=== PATIENT | male | born 1995 | race Caucasian/White ===

== ENCOUNTER 2017-08-28 17:02 | Emergency (ER) | payer BC, SELFPAY ==
[2017-08-28] MEDS ORDERED: Ibuprofen 200 MG TAB ONE (17:31)
--- NOTE | 2017-08-29 07:46 | RAD ---
3 VIEWS RIGHT FOOT: Date: 08/28/17 COMPARISON: None. HISTORY: Right foot pain after injury. FINDINGS: Three views of the right foot show a spiral fracture of the 5th metacarpal with overlying soft tissu e swelling. This fracture is extraarticular. No significant degenerative changes are seen. IMPRESSION: Right 5th metacarpal fracture. POS: [facility]
== END 2017-08-28 18:33 | disposition home or self-care (01) ==
LOC: NAV ERS 17:02
DX: S92.354A Nondisplaced fracture of fifth metatarsal bone, right foot, initial encounter for closed fracture (principal); F90.9 Attention-deficit hyperactivity disorder, unspecified type; X50.1XXA Overexertion from prolonged static or awkward postures, initial encounter

== ENCOUNTER 2017-11-09 17:33 | Emergency (ER) | payer BC ==
[2017-11-09] MEDS ORDERED: diphenhydrAMINE 50 MG/ML VIAL ONE (18:08)
[2017-11-09] MEDS ORDERED: Sodium Chloride 0.9% 1,000 ML ONE (18:08)
[2017-11-09] MEDS ORDERED: Ketorolac Tromethamine 30 MG/ML VIAL ONE (18:09)
--- NOTE | 2017-11-09 18:50 | CT ---
CT HEAD WITHOUT CONTRAST: 11/09/16 Multiple axial tomograms obtained through the head without contrast. HISTORY: Headache. Ventricles have normal size and position. No evidence of intracranial mass or hemorrhage. Sinuses and mastoids are aerated. IMPRESSION: No acute abnormality. POS: [facility]
== END 2017-11-09 19:43 | disposition home or self-care (01) ==
LOC: NAV ERS 17:33
DX: R51 Headache (principal); F90.9 Attention-deficit hyperactivity disorder, unspecified type
CPT/HCPCS: 70450; 96361; 96374; 96375; J1200; J1885; J7050

== ENCOUNTER 2017-12-14 16:10 | Emergency (ER) | payer BC ==
[2017-12-14] MEDS ORDERED: Lorazepam 1 MG TAB ONE (16:53)
== END 2017-12-14 17:30 | disposition home or self-care (01) ==
LOC: NAV ERS 16:10
DX: F41.9 Anxiety disorder, unspecified (principal); R03.0 Elevated blood-pressure reading, without diagnosis of hypertension; G43.909 Migraine, unspecified, not intractable, without status migrainosus; F32.9 Major depressive disorder, single episode, unspecified; F90.9 Attention-deficit hyperactivity disorder, unspecified type; Z87.891 Personal history of nicotine dependence
CPT/HCPCS: 99284

== ENCOUNTER 2018-01-12 21:48 | Emergency (ER) | payer BC ==
[2018-01-12] MEDS ORDERED: Lorazepam 1 MG TAB ONE (22:24)
== END 2018-01-12 22:42 | disposition home or self-care (01) ==
LOC: NAV ERS 21:48
DX: F41.9 Anxiety disorder, unspecified (principal); G43.909 Migraine, unspecified, not intractable, without status migrainosus; Z87.891 Personal history of nicotine dependence
CPT/HCPCS: 99283

== ENCOUNTER 2018-03-23 15:46 | Emergency (ER) | payer BC, OTHER ==
[2018-03-23] MEDS ORDERED: HYDROcodone/Acetaminophen 5/325 mg Tablet ONE (16:06)
--- NOTE | 2018-03-23 16:20 | RAD ---
FINGERS LEFT HAND: 03/23/18 Left third finger evaluated. Three views obtained. HISTORY: Injury to left third finger with pain. No evidence of fracture or dislocation. IMPRESSION: No acute osseous abnormality. POS: [facility]
[2018-03-23] MEDS ORDERED: Bacitracin Zinc 1 Packet ONE (16:57)
== END 2018-03-23 17:02 | disposition home or self-care (01) ==
LOC: NAV ERS 15:46
DX: S60.032A Contusion of left middle finger without damage to nail, initial encounter (principal); G43.909 Migraine, unspecified, not intractable, without status migrainosus; F41.9 Anxiety disorder, unspecified; F90.9 Attention-deficit hyperactivity disorder, unspecified type; K58.9 Irritable bowel syndrome, unspecified; F32.9 Major depressive disorder, single episode, unspecified; Z87.891 Personal history of nicotine dependence; Z79.899 Other long term (current) drug therapy; W23.0XXA Caught, crushed, jammed, or pinched between moving objects, initial encounter

== ENCOUNTER 2018-03-24 14:52 | Emergency (ER) | payer OTHER ==
[2018-03-24] MEDS ORDERED: Bacitracin Zinc 1 Packet ONE (15:22)
== END 2018-03-24 15:45 | disposition home or self-care (01) ==
LOC: NAV ERS 14:52
DX: S60.132A Contusion of left middle finger with damage to nail, initial encounter (principal); G43.909 Migraine, unspecified, not intractable, without status migrainosus; F41.9 Anxiety disorder, unspecified; F32.9 Major depressive disorder, single episode, unspecified; F90.9 Attention-deficit hyperactivity disorder, unspecified type; Z79.899 Other long term (current) drug therapy; W23.0XXA Caught, crushed, jammed, or pinched between moving objects, initial encounter
CPT/HCPCS: 11740

== ENCOUNTER 2018-04-19 14:42 | Emergency (ER) | payer OTHER, BC | END 2018-04-19 15:11 | disposition home or self-care (01) | LOC: NAV ERS 14:42 | DX: R10.9 Unspecified abdominal pain (principal); F41.9 Anxiety disorder, unspecified; F32.9 Major depressive disorder, single episode, unspecified; F90.9 Attention-deficit hyperactivity disorder, unspecified type; F17.290 Nicotine dependence, other tobacco product, uncomplicated; K21.9 Gastro-esophageal reflux disease without esophagitis; G43.909 Migraine, unspecified, not intractable, without status migrainosus; K58.9 Irritable bowel syndrome, unspecified; Z79.899 Other long term (current) drug therapy | CPT/HCPCS: 99283 ==

== ENCOUNTER 2019-03-30 18:41 | Emergency (ER) | payer BC | END 2019-03-30 19:11 | disposition home or self-care (01) | LOC: NAV ERS 18:41 | DX: S61.216A Laceration without foreign body of right little finger without damage to nail, initial encounter (principal); K58.9 Irritable bowel syndrome, unspecified; G43.909 Migraine, unspecified, not intractable, without status migrainosus; F41.9 Anxiety disorder, unspecified; F90.9 Attention-deficit hyperactivity disorder, unspecified type; Z87.891 Personal history of nicotine dependence; Z79.899 Other long term (current) drug therapy; W45.8XXA Other foreign body or object entering through skin, initial encounter | CPT/HCPCS: 12001 ==

== ENCOUNTER 2019-10-13 00:53 | Emergency (ER) | payer BC ==
[2019-10-13] MEDS ORDERED: Sodium Chloride 0.9% 1,000 ML ONE (01:54)
[2019-10-13] MEDS ORDERED: Ondansetron ODT 4 MG TAB ONE (01:57)
[2019-10-13 02:22] LABS: #Basophils 0.1 thou/uL (0.0-0.2); #Lymphocytes 0.3 thou/uL (1.20-3.40); #Monocytes 0.5 thou/uL (0.11-0.59); #Neutrophils 12.6 thou/uL (1.40-6.50); %Basophils 0.4 % (0.0-1.0); %Eosinophils 0.1 % (0.0-10.0); %Lymphocytes 2.4 % (21.0-51.0); %Monocytes 3.7 % (0.0-10.0); %Neutrophils 93.3 % (42.0-75.0); Hemoglobin 14.1 g/dL (14.0-18.0); Mean Corpuscular HGB CONC 33.2 g/dL (32.0-36.0); Mean Corpuscular Hemoglobin 28.8 pg (27.0-31.0); Mean Corpuscular Volume 86.6 fL (78.0-98.0); Mean Platelet Volume 7.6 fL (7.4-10.4); Platelet Count 219 thou/uL (130-400); RBC Distribution Width 12.1 % (11.5-14.5); Red Blood Cell (RBC) Count 4.89 mill/uL (4.70-6.10); White Blood Cell (WBC) Count 13.5 thou/uL (4.8-10.8)
[2019-10-13 02:34] LABS: ALT (SGPT) 15 U/L (8-55); AST (SGOT) 19 U/L (5-34); Albumin 4.9 g/dL (3.5-5.0); Alkaline Phosphatase 45 U/L (40-110); Anion Gap 17 mmol/L (10-20); BUN (Urea Nitrogen) 19 mg/dL (8.9-20.6); Bilirubin, Total 0.5 mg/dL (0.2-1.2); CRP (Inflammatory) Less than 0.50 mg/dL (= or < 0.5); Calc. Creatinine Clearance 0 mL/min (70-130); Calcium 8.9 mg/dL (7.8-10.44); Carbon Dioxide 26 mmol/L (22-29); Chloride 101 mmol/L (98-107); Estimated GFR-MDRD Greater than 90; Globulin 3.2 g/dL (2.4-3.5); Glucose 135 mg/dL (70-105); Potassium 4.3 mmol/L (3.5-5.1); Protein, Total 8.1 g/dL (6.0-8.3); Sodium 140 mmol/L (136-145)
[2019-10-13] MEDS ORDERED: Ketorolac Tromethamine 30 MG/ML VIAL ONE (02:59)
== END 2019-10-13 03:19 | disposition home or self-care (01) ==
LOC: NAV ERS 00:53
DX: J10.1 Influenza due to other identified influenza virus with other respiratory manifestations (principal); R11.2 Nausea with vomiting, unspecified; R19.7 Diarrhea, unspecified; R10.84 Generalized abdominal pain; G43.909 Migraine, unspecified, not intractable, without status migrainosus; F41.9 Anxiety disorder, unspecified; F32.9 Major depressive disorder, single episode, unspecified; F90.9 Attention-deficit hyperactivity disorder, unspecified type; Z87.891 Personal history of nicotine dependence; Z79.899 Other long term (current) drug therapy
CPT/HCPCS: 36415; 80053; 83690; 85025; 86140; 87804; 96361; 96374; J1885; J7050; Q0162

== ENCOUNTER 2019-10-17 19:25 | Emergency (ER) | payer BC ==
[2019-10-17] MEDS ORDERED: Triple Antibiotic Oint 1 GM Packet ONE (19:46)
== END 2019-10-17 19:50 | disposition home or self-care (01) ==
LOC: NAV ERS 19:25
DX: S61.210A Laceration without foreign body of right index finger without damage to nail, initial encounter (principal); G43.909 Migraine, unspecified, not intractable, without status migrainosus; F41.9 Anxiety disorder, unspecified; F32.9 Major depressive disorder, single episode, unspecified; F90.9 Attention-deficit hyperactivity disorder, unspecified type; F17.290 Nicotine dependence, other tobacco product, uncomplicated; Z79.899 Other long term (current) drug therapy; W26.0XXA Contact with knife, initial encounter
CPT/HCPCS: 99282

== ENCOUNTER 2020-05-03 18:44 | Emergency (ER) | payer BC, OTHER ==
[2020-05-04 16:46] LABS: SARS-CoV-2 MS2 Positive; SARS-CoV-2 N Gene Negative; SARS-CoV-2 S Gene Negative; SARS-CoV-2 orf1ab Negative
== END 2020-05-03 19:33 | disposition home or self-care (01) ==
LOC: NAV ERS 18:44
DX: B34.9 Viral infection, unspecified (principal); Z20.828 Contact with and (suspected) exposure to other viral communicable diseases; K58.9 Irritable bowel syndrome, unspecified; G43.909 Migraine, unspecified, not intractable, without status migrainosus; F41.9 Anxiety disorder, unspecified; F32.9 Major depressive disorder, single episode, unspecified; F90.9 Attention-deficit hyperactivity disorder, unspecified type; F17.290 Nicotine dependence, other tobacco product, uncomplicated; Z79.899 Other long term (current) drug therapy
CPT/HCPCS: 87635; 99283; U0003

== ENCOUNTER 2020-05-20 20:46 | Emergency (ER) | payer BC, OTHER ==
[2020-05-20] MEDS ORDERED: Ondansetron PF 4 MG/2 ML Vial ONE (21:30)
[2020-05-20] MEDS ORDERED: Ketorolac Tromethamine 30 MG/ML VIAL ONE (21:30)
[2020-05-20] MEDS ORDERED: Sodium Chloride 0.9% 1,000 ML ONE (21:30)
[2020-05-20 21:35] LABS: #Basophils 0.1 thou/uL (0.0-0.2); #Eosinphils 0.1 thou/uL (0.0-0.7); #Lymphocytes 1.7 thou/uL (1.20-3.40); #Monocytes 0.6 thou/uL (0.11-0.59); #Neutrophils 5.3 thou/uL (1.40-6.50); %Basophils 0.7 % (0.0-1.0); %Eosinophils 0.7 % (0.0-10.0); %Lymphocytes 21.7 % (21.0-51.0); %Monocytes 7.6 % (0.0-10.0); %Neutrophils 69.3 % (42.0-75.0); Hemoglobin 13.9 g/dL (14.0-18.0); Mean Corpuscular Hemoglobin 28.3 pg (27.0-31.0); Mean Corpuscular Volume 88.3 fL (78.0-98.0); Mean Platelet Volume 7.9 fL (7.4-10.4); Platelet Count 249 thou/uL (130-400); RBC Distribution Width 11.9 % (11.5-14.5); White Blood Cell (WBC) Count 7.6 thou/uL (4.8-10.8)
[2020-05-20 21:50] LABS: ALT (SGPT) 13 U/L (8-55); AST (SGOT) 13 U/L (5-34); Albumin 4.8 g/dL (3.5-5.0); Alkaline Phosphatase 49 U/L (40-110); Anion Gap 15 mmol/L (10-20); BUN (Urea Nitrogen) 19 mg/dL (8.9-20.6); Bilirubin, Total 0.5 mg/dL (0.2-1.2); Calc. Creatinine Clearance 0 mL/min (70-130); Calcium 9.7 mg/dL (7.8-10.44); Carbon Dioxide 26 mmol/L (22-29); Chloride 104 mmol/L (98-107); Estimated GFR-MDRD 80; Globulin 3.1 g/dL (2.4-3.5); Glucose 102 mg/dL (70-105); Potassium 3.8 mmol/L (3.5-5.1); Protein, Total 7.9 g/dL (6.0-8.3); Sodium 141 mmol/L (136-145)
[2020-05-20 22:15] LABS: Bilirubin Negative (Negative); Blood, Urine Negative (Negative); Clarity Clear (Clear); Glucose, Urine (Dipstick) Negative (Negative); Ketone, Urine Trace mg/dL (Negative); Leukocyte Negative (Negative); Nitrite Negative (Negative); Protein, Urine (Dipstick) 30 mg/dL (Neg-Trace); Specific Gravity, Urine 1.025 (1.005-1.030); Urobilinogen 0.2 mg/dL (Less than 2)
[2020-05-20 22:23] LABS: RBC/HPF 0-3 HPF (0-3); Squamous Epithelial 0-3 HPF (0-3); Transitional Epithelial 0-3 HPF (None Seen)
== END 2020-05-20 22:50 | disposition home or self-care (01) ==
LOC: NAV ERS 20:46
DX: B34.9 Viral infection, unspecified (principal); E86.9 Volume depletion, unspecified; G43.909 Migraine, unspecified, not intractable, without status migrainosus; F90.9 Attention-deficit hyperactivity disorder, unspecified type; F32.9 Major depressive disorder, single episode, unspecified; F41.9 Anxiety disorder, unspecified; F17.290 Nicotine dependence, other tobacco product, uncomplicated; Z79.899 Other long term (current) drug therapy
CPT/HCPCS: 80053; 81003; 81015; 85025; 96361; 96374; 96375; J1885; J2405; J7050

== ENCOUNTER 2020-09-20 18:57 | Emergency (ER) | payer BC, SELFPAY | END 2020-09-20 19:30 | disposition home or self-care (01) | LOC: NAV ERS 18:57 | DX: R21 Rash and other nonspecific skin eruption (principal); K58.9 Irritable bowel syndrome, unspecified; Z79.899 Other long term (current) drug therapy; Z87.891 Personal history of nicotine dependence | CPT/HCPCS: 99282 ==

== ENCOUNTER 2021-11-14 22:19 | Emergency (ER) | payer SELFPAY | END 2021-11-15 01:35 | disposition home or self-care (01) | LOC: NAV ERS 22:19 | DX: S30.0XXA Contusion of lower back and pelvis, initial encounter (principal); M54.16 Radiculopathy, lumbar region; K58.9 Irritable bowel syndrome, unspecified; Z87.891 Personal history of nicotine dependence | CPT/HCPCS: 72131; 72192 ==

== ENCOUNTER 2023-05-29 19:10 | Emergency (ER) | payer BC, SELFPAY | END 2023-05-29 20:33 | disposition home or self-care (01) | LOC: NAV ERS 19:10 | DX: S90.111A Contusion of right great toe without damage to nail, initial encounter (principal); Z87.891 Personal history of nicotine dependence; W22.8XXA Striking against or struck by other objects, initial encounter; Y93.89 Activity, other specified ==

== ENCOUNTER 2024-03-16 14:03 | Emergency (ER) | payer BC ==
[2024-03-16 15:13] LABS: Bilirubin Negative (Negative); Blood, Urine Negative (Negative); Clarity Clear (Clear); Glucose, Urine (Dipstick) Negative (Negative); Ketone, Urine Negative (Negative); Leukocyte Negative (Negative); Nitrite Negative (Negative); Protein, Urine (Dipstick) Negative (Neg-Trace); Urobilinogen 0.2 mg/dL (Less than 2)
[2024-03-16 15:18] LABS: CAUTI Indications for Culture Pelvic or flank pain; RBC/HPF 0-3 HPF (0-3); Specific Gravity, Urine 1.031 (1.002-1.036); Squamous Epithelial 0-3 HPF (0-3); WBC/HPF None Seen HPF (0-3)
[2024-03-16 15:19] LABS: Urine Culture Reflex No No
[2024-03-16 15:23] LABS: Amphetamine Not Detected (NotDetected); Barbiturates Screen Not Detected (NotDetected); Benzodiazepine Screen Not Detected (NotDetected); Cocaine Metabolite Screen Not Detected (NotDetected); Methadone Not Detected (NotDetected); Methamphetamine Not Detected (NotDetected); Opiate Screen Detected (NotDetected); Oxycodone Screen Not Detected (NotDetected); Phencyclidine (PCP) Not Detected (NotDetected); THC/Cannabinoid Screen Not Detected (NotDetected); Tricyclic Screen Not Detected (NotDetected)
[2024-03-16 15:31] LABS: #Lymphocytes 0.8 thou/uL (1.20-3.40); #Monocytes 0.4 thou/uL (0.11-0.59); #Neutrophils 5.6 thou/uL (1.40-6.50); %Basophils 0.4 % (0.0-1.0); %Eosinophils 0.6 % (0.0-10.0); %Lymphocytes 11.2 % (21.0-51.0); %Monocytes 6.3 % (0.0-10.0); %Neutrophils 81.5 % (42.0-75.0); Hematocrit 44.3 % (42.0-52.0); Hemoglobin 14.1 g/dL (14.0-18.0); Mean Corpuscular HGB CONC 31.9 g/dL (32.0-36.0); Mean Corpuscular Hemoglobin 28.3 pg (27.0-31.0); Mean Corpuscular Volume 88.7 fl (78.0-98.0); Mean Platelet Volume 6.7 fL (7.4-10.4); Platelet Count 210 10x3/uL (130-400); RBC Distribution Width 11.6 % (11.5-14.5); White Blood Cell (WBC) Count 6.9 10x3/uL (4.8-10.8)
[2024-03-16 15:48] LABS: ALT (SGPT) 14 U/L (8-55); AST (SGOT) 15 U/L (5-34); Acetaminophen Less than 10 mcg/mL (10.0-30.0); Albumin 4.6 g/dL (3.5-5.0); Alcohol Less than 10.0 mg/dL (Less than 10); Alkaline Phosphatase 55 U/L (40-110); Anion Gap 14 mmol/L (10-20); BUN (Urea Nitrogen) 23 mg/dL (8.9-20.6); Bilirubin, Total 0.5 mg/dL (0.2-1.2); Calc. Creatinine Clearance 0 mL/min (70-130); Calcium 9.3 mg/dL (7.8-10.44); Carbon Dioxide 26 mmol/L (22-29); Chloride 104 mmol/L (98-107); Estimated GFR 117; Globulin 3.2 g/dL (2.4-3.5); Glucose 85 mg/dL (70-105); Potassium 4.2 mmol/L (3.5-5.1); Protein, Total 7.8 g/dL (6.0-8.3); Salicylate Less than 8.0 mg/dL (15.0-30.0); Sodium 140 mmol/L (136-145)
[2024-03-16] MEDS ORDERED: Ketorolac Tromethamine 60 MG/2 ML VIAL ONE (16:04)
[2024-03-16] MEDS ORDERED: Cyclobenzaprine 10 MG TAB ONE (16:05)
== END 2024-03-16 16:55 | disposition home or self-care (01) ==
LOC: NAV ERS 14:03
DX: S39.012A Strain of muscle, fascia and tendon of lower back, initial encounter (principal); F33.9 Major depressive disorder, recurrent, unspecified; X50.0XXA Overexertion from strenuous movement or load, initial encounter; Y99.0 Civilian activity done for income or pay
CPT/HCPCS: 36415; 72131; 72192; 80053; 80306; 80307; 81001; 85025; 86140; 96372; J1885